=== PATIENT | male | born 1980 | race Caucasian/White ===

== ENCOUNTER 2016-12-27 05:59 | Observation (INO) | payer BC ==
--- NOTE | ~2016-12-27 | TH ---
Unit #: [id number] #: [id number] Patient: FROYLAN JANG [id number] [address] [address] [id number] I MR#: [id number] NAME: FROYLAN JANG : 1980 SEX: M STUDY DATE/TIME: 12/27/2016 UNIT: [facility] ROOM: [id number] STUDY DESCRIPTION: Stress nuclear Attending Physician: Andrez Ramires M.D. Primary Care Physician: Miranda Soto CARDIOLOGY REPORT EXAM Stress nuclear and ECG. INDICATION Chest pain, coronary artery disease family history, untreated sleep apnea. FINDINGS The patient exercised on a Marques protocol to maximal effort. The patient did not experience any angina or anginal equivalent. The resting ECG showed indeterminate access but no acute ST changes. The patient complained of fatigue at max effort likely related to working all night. There were single PVCs noted post exercise. The patient completed 7 minutes of exercise. Heart rate increased from 78 to 162 (89%) and blood pressure increased from 130/89 to 200/100, increasing to 210/86 post exercise. Perfusion images, after 10.56 and 35.0 mCi of Tc-99m Cardiolite, at rest and stress respectively demonstrated moderately severe LV enlargement, 195 mL. Ejection fraction quantitatively is 52%. Qualitatively, it appears to be closer 45 to 50%. RV appears upper normal in size. Summed stress score is three. Summed difference score is one. There is no significant patient motion either at rest or stress. There is no significant lung uptake, LV or RV enlargement. Perfusion images demonstrate normal perfusion throughout the myocardium both at rest and stress. IMPRESSION 1. Stress nuclear study shows no ischemia or infarction. 2. Very large ventricle with low normal LV function. 3. Normal stress ECG. 4. Hypertensive response to stress. 5. Moderate deconditioning based on the patient's age. Dictated by... Andrez Ramires M.D. GALINA/guy TD: 12/28/2016 07:36 JOB #: [id number] Unit #: [id number] #: [id number] Patient: FROYLAN JANG CARDIOLOGY REPORT Page 1 of 1 X Andrez Ramires MD CARDIOLOGY REPORT
--- NOTE | ~2016-12-27 | ST ---
Unit #: [id number] #: [id number] Patient: FROYLAN JANG [id number] [address] [address] [id number] I MR#: [id number] NAME: FROYLAN JANG : 1980 SEX: M STUDY DATE/TIME: 12/27/2016 UNIT: [facility] ROOM: [id number] STUDY DESCRIPTION: Stress ECG Attending Physician: Andrez Ramires M.D. Primary Care Physician: Miranda Soto CARDIOLOGY REPORT EXAM Stress ECG. FINDINGS Result text under nuclear order number. Please see this order for result text. Dictated by... Andrez Ramires M.D. PJAmirah/guy TD: 12/28/2016 07:52 JOB #: [id number] CARDIOLOGY REPORT Page 1 of 1 X Andrez Ramires MD CARDIOLOGY REPORT
--- NOTE | ~2016-12-27 | EKG ---
PATIENT: FROYLAN JANG UNIT #: [id number] Ventricular Rate: 64 BPM Atrial Rate: 64 BPM P-R Interval: 186 ms QRS Duration: 112 ms Q-T Interval: 446 ms QTC Calculation(Bezet): 460 ms P [place]: 43 degrees Calculated R [place]: -111 degrees Calculated T [place]: 34 degrees Diagnosis Line: Normal sinus rhythm Diagnosis Line: Right superior axis deviation Diagnosis Line: Abnormal ECG Diagnosis Line: When compared with ECG of 27-DEC-2016 05:12, Diagnosis Line: (unconfirmed) Diagnosis Line: No significant change was found Diagnosis Line: Confirmed by ESTEFANY JEWELL MD ([id number]) on 12/27/2016 Diagnosis Line: 9:22:50 PM INTERPRETING MD: FANTA RUSSELL
--- NOTE | ~2016-12-27 | HP ---
Unit #: [id number] #: [id number] Patient: FROYLAN JANG [id number] [facility]. [place], [place] [address] [id number] E MR#: [id number] NAME: FROYLAN JANG ROOM: Age: 36 Sex: M Admission Date: 12/27/2016 : 1980 Attending Physician: Constantin Merchant M.D. Primary Care Physician: Miranda Soto HISTORY AND PHYSICAL CHIEF COMPLAINT Syncope and chest pain. HISTORY OF PRESENT ILLNESS The patient is a pleasant 36 year old with a borderline history of hypertension, dyslipidemia, a family history of coronary disease and noncompliant sleep apnea. He has had no prior cardiac events but family history of cardiac events, starts in their 30s to 40s, typically dying in their 60s. He works nightshift in a plastics factory and was doing his normal activity, which can involve standing, walking and climbing ladders, when he started to develop a little bit of dizziness. This occurred around 4 a.m., and he had eaten normally. He leaned forward, and he thinks he may have blacked out at that time. He looked suboptimal, and they put him in a wheelchair and provided care, calling 9-1-1. He developed chest pain when he leaned forward and felt like he may have blacked out. This was associated with slightly increased diaphoresis, slight radiation to the upper left arm but no nausea. He says that this persisted until the emergency room at around 8:30 a.m. when nitrates were placed, providing some but not total relief. The chest pain was aggravated when I examined him by light manual pressure. His initial ECG was normal. Followup ECG approximately 3 hours later was normal. Initial razuw-[id number] troponin was normal. Subsequent troponin is pending at the time of this dictation. He has had no PND or orthopnea previously, and his states that his legs are always swollen up. He states that he has had no angina or syncope in the past. PAST MEDICAL HISTORY 1. Positive for multiple injuries. 2. Borderline hypertension at times. 3. Borderline cholesterol at times, as stated by his . 4. Sleep apnea. He says he tried a mask and could not get used to it; thus, he stopped using it. 5. Exogenous obesity. He has lost 10 pounds recently. 6. Denies tobacco abuse and diabetes. PAST SURGICAL HISTORY Left arm surgery, tendon surgery, multiple injuries. 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 We do not see any bigeminy during our evaluation so far. Unit #: [id number] #: [id number] Patient: FROYLAN JANG Coreg, Vicodin. ALLERGIES Penicillins, sulfa, codeine, Ceclor, Erythromycin, azithromycin. SOCIAL HISTORY He is here with his mother and . Works at a [employer]. Denies any form of tobacco use. FAMILY HISTORY Positive for premature atherosclerotic disease with initiation in their 30s to 40s, in their 60s. REVIEW OF SYSTEMS As per history of present illness. Otherwise, as stated below. GENERAL: No recent fever or chills. No recent weight change. ENDOCRINE: Negative for thyroid disease. HEENT: No auditory or visual disturbances. GASTROINTESTINAL: No melena, no hematochezia. RESPIRATORY: No wheezing or significant dyspnea. CARDIOVASCULAR: Vide supra. GENITOURINARY: No dysuria. No back pain suggestive of nephrolithiasis. NEUROLOGIC: No seizure disorder, recent CVA, or TIA. PSYCHOLOGICAL: No depression. PHYSICAL EXAMINATION VITAL SIGNS: Blood pressure 133/79, heart rate 76 and regular, respiratory rate 15, weight 380 pounds. GENERAL: Pleasant, alert, in no acute distress. SKIN: Warm and dry. No xanthelasma. MUSCULOSKELETAL: No missing digits. Moves easily for evaluation. NEUROLOGICAL: Appropriate mood and affect. Alert and oriented x3. HEENT: Pupils equal, round and reactive. No oral cyanosis. No icterus. NECK: Carotids clear to auscultation with no carotid bruits. Normal carotid upstroke bilaterally. Thyroid is normal in size and texture without masses or tenderness. CHEST: Clear to auscultation with no rales or wheezes. Good effort. CARDIAC: Normal point of maximum impulse. Normal S1 and S2. No S3, S4 or rub. ABDOMEN: No hepatosplenomegaly, masses or tenderness. Normal bowel sounds. No abdominal bruits heard. EXTREMITIES: No clubbing, cyanosis or edema. Excellent posterior tibial and dorsalis pedis pulses. DIAGNOSTIC EVALUATION CARDIOVASCULAR: ECG shows no acute ST changes. LABORATORY: Hemoglobin is 14.2, white blood count 7.7. Troponin normal. Urinalysis not provided. Glucose is 110, creatinine 1.1, potassium 3.6. Liver enzymes are normal. IMPRESSION 1. Dizziness with possible syncope but with no injury. He feels like he may have blacked out but is not sure. This sounds like a vagal reaction, unsure exactly what brought this on, however. 2. Chest pain, atypical. The pain was reproduced by light manual Unit #: [id number] #: [id number] Patient: FROYLAN JANG pressure on the left chest. However, his risk factor profile is very high, and I think it is reasonable to get a stress test on him today. 3. Borderline dyslipidemia in the past. We will recheck. His states that it has been greater than a year since it has been checked. 4. No diabetes or tobacco. 5. Borderline hypertension in the past. Blood pressure is good right now. Will continue to observe. 6. Sleep apnea, untreated, noncompliant. Emphasized the importance of treatment to the patient and the patient's and his mother. 7. Obesity. Decreased 10 pounds. We do not have a BMI, but it is likely increased based on the weight. 8. Family history of coronary disease, very significant. Certainly raises his risk. PLAN 1. Stress test. 2. Echo. 3. Emphasize need for sleep apnea followup. 4. Check lipids, TSH, hemoglobin A1C, urinalysis and repeat troponin. If repeat troponin is normal, we will get the stress test. 5. If everything looks good, okay to go home. I think a lot of this may have been a combination of musculoskeletal chest discomfort and vagal symptoms; however, the chest discomfort did resolve in part with nitrates. Dictated by Andrez Ramires M.D. GALINA/chucky TD: 12/27/2016 09:57 JOB #: [id number] HISTORY AND PHYSICAL Page 1 of 1 X Andrez Ramires MD HISTORY AND PHYSICAL
--- NOTE | ~2016-12-27 | CR72 ---
[facility] A Service of [facility] & [facility] RADIOLOGY TEXT RESULTS PATIENT: FROYLAN JANG LOCATION: [facility] [id number] : [birth year] UNIT #: [id number] AGE: [address]: Andrez Ramires MD SEX: M ORDER DR: [id number] [facility] [address] [place], [place] [address] [id number] E MR#: [id number] Acc #: [id number] NAME: FROYLAN JANG : 1980 SEX: M STUDY DATE/TIME: 12/27/2016 5:47 UNIT: [facility] ROOM: STUDY DESCRIPTION: CR Chest Single View Portable Attending Physician: Constantin Merchant M.D. Ordering Physician: Chris Zambrano D.O. Primary Care Physician: Miranda Soto MEDICAL IMAGING REPORT This report is preliminary unless electronic signature is present EXAM Portable chest HISTORY Syncopal episode tonight. Left-sided chest pain. FINDINGS Portable view of the chest demonstrates low lung volumes. Heart and mediastinum are unremarkable. Mild pulmonary vascular congestion probably related to low lung volumes. No dense consolidation, effusions or pneumothorax. Dictated by... Seble Evans M.D. THIS IS AN ELECTRONICALLY VERIFIED REPORT Seble Evans M.D. at 12/27/2016 12:26 PM Kera TD: 12/27/2016 08:41 JOB #: [id number] MEDICAL IMAGING REPORT Page 1 of 1 COPY
--- NOTE | ~2016-12-27 | EKG ---
PATIENT: FROYLAN JANG UNIT #: [id number] Ventricular Rate: 71 BPM Atrial Rate: 71 BPM P-R Interval: 186 ms QRS Duration: 118 ms Q-T Interval: 394 ms QTC Calculation(Bezet): 428 ms P [place]: 42 degrees Calculated R [place]: -82 degrees Calculated T [place]: 38 degrees Diagnosis Line: Normal sinus rhythm Diagnosis Line: Left axis deviation Diagnosis Line: Non-specific intra-ventricular conduction delay Diagnosis Line: Abnormal ECG Diagnosis Line: No previous ECGs available Diagnosis Line: Confirmed by ESTEFANY JEWELL MD ([id number]) on 12/27/2016 Diagnosis Line: 9:20:51 PM INTERPRETING MD: FANTA RUSSELL
[2016-12-27 05:40] LABS: POC - TROPONIN <0.05 ng/mL (<=0.05)
[2016-12-27 05:47] LABS: BASOPHIL# 0.1 X10e3 (0-0.3); BASOPHIL% 1.1 % (0-2.5); EOSINOPHIL# 0.2 X10e3 (0-0.7); EOSINOPHIL% 2.7 % (0.0-7.0); HEMOGLOBIN 14.2 gm/dL (13.0-16.0); LYMPHOCYTE# 2.1 X10e3 (1.0-3.5); LYMPHOCYTE% 27.7 % (17.0-45.0); MEAN CELL VOLUME 88.5 FL (83-96); MEAN CORPUSCULAR HEMOGLOBIN 30.7 PG (28-34); MEAN CORPUSCULAR HGB CONC 34.6 g/dL (30-36); MONOCYTE# 0.6 X10e3 (0-1.0); MONOCYTE% 8.1 % (3.0-12.0); NEUTROPHIL# 4.6 X10e3 (1.5-7.1); NEUTROPHIL% 60.4 % (40-75); PLATELET COUNT 219 X10e3 (140-420); RED BLOOD COUNT 4.63 X10e (3.90-5.60); RED CELL DISTRIBUTION WIDTH 12.8 % (11.0-15.5); WHITE BLOOD COUNT 7.7 X10e3 (4.0-10.5)
[2016-12-27 05:52] LABS: DIFF IND NO
[~2016-12-27 05:59] MED LIST: COREG6.25 MG PO; VICODIN 5/1 TAB 5/50 PO
[2016-12-27 06:09] LABS: PARTIAL THROMBOPLASTIN TIME 25.4 SECONDS (23.5-31.3); PROTHROMBIN TIME (PATIENT) 10.6 SECONDS (9.6-11.5)
[2016-12-27 06:18] LABS: ALBUMIN SERUM 4.2 g/dL (3.5-5.0); BILIRUBIN, DIRECT 0.1 mg/dL (0.0-0.2); BILIRUBIN,INDIRECT 0.5 mg/dL (0.0-0.9); BILIRUBIN,TOTAL 0.6 mg/dL (0.2-2.0); BUN/CREATININE RATIO 15.45; CALCIUM SERUM 9.3 mg/dL (8.4-10.2); CREATININE SERUM 1.1 mg/dL (0.6-1.4); GLOM FILT RATE Estimated 85.3 mL/min (>60); POTASSIUM 3.6 mmol/L (3.5-5.1); PROTEIN TOTAL SERUM 7.5 g/dL (6.0-8.3)
[2016-12-27 07:56] LABS: POC - CKMB <1.0 ng/mL (0.0-7.9); POC - TROPONIN <0.05 ng/mL (<=0.05)
[2016-12-27 10:24] LABS: CHOLESTEROL 190 mg/dL (0-200); HDL CHOLESTEROL 52 mg/dL (29-75); LDL CHOLESTEROL 101 mg/dL (-130); LDL/HDL RATIO 2 RATIO (0-4); TRIGLYCERIDES 184 mg/dL (10-160)
[2016-12-27 11:38] LABS: URINE SOURCE CLEAN CATCH
[2016-12-27 11:46] LABS: URINE APPEARANCE CLEAR; URINE BILIRUBIN NEG (NEG); URINE BLOOD NEG (NEG); URINE COLOR YELLOW; URINE GLUCOSE NEG (NEG); URINE KETONE NEG (NEG); URINE LEUKOCYTE ESTERASE NEG (NEG); URINE NITRATE NEG (NEG); URINE PH 5.5 (5-8); URINE PROTEIN NEG (NEG); URINE SPECIFIC GRAVITY 1.033 (1.003-1.035)
[2016-12-27 11:57] LABS: CULTURE INDICATED? NO
== END 2016-12-27 18:40 | disposition home or self-care (01) | DRG 313 ==
LOC: CED 05:59 → CEDOF 09:15
PROVIDERS: Emergency Medicine
DX: R07.89 Other chest pain (principal); I51.7 Cardiomegaly; I36.1 Nonrheumatic tricuspid (valve) insufficiency; J98.4 Other disorders of lung; I10 Essential (primary) hypertension; E78.5 Hyperlipidemia, unspecified; G47.30 Sleep apnea, unspecified; E66.09 Other obesity due to excess calories; R55 Syncope and collapse; Z79.891 Long term (current) use of opiate analgesic; Z79.899 Other long term (current) drug therapy; Z82.49 Family history of ischemic heart disease and other diseases of the circulatory system; Z88.5 Allergy status to narcotic agent; Z88.0 Allergy status to penicillin; Z88.2 Allergy status to sulfonamides; Z88.1 Allergy status to other antibiotic agents
CPT/HCPCS: 36415; 71010; 78452; 80048; 80061; 80076; 81003; 82553; 83036; 83880; 84443; 84484; 85025; 85379; 85610; 85730; 93005; 93017; 93306; 99285; A9500; G0378